=== PATIENT | female | born 1995 | race American Indian/Alaskan Native ===

== ENCOUNTER 2017-06-27 14:01 | Outpatient (CLI) | payer MEDICAID ==
--- NOTE | 2017-06-28 09:55 | Ultrasound Report ---
BIOPHYSICAL PROFILE: 2 - breathing movements 2 - movements 2 - posture and tone 2 - Qualitative amniotic fluid volume 8 - TOTAL SCORE OF POSSIBLE 8 Heart Rate (bpm) 166 Gestation: Single Position: Cephalic Amniotic Fluid: MILADYS = 13.7 cm Heart Rate: 131 BPM
[2017-07-01 13:44] VITALS: BP 106/70
== END 2017-06-27 18:45 | disposition home or self-care (01) ==
LOC: TRG 14:01
PROVIDERS: ATTEND Obstetrics & Gynecology
DX: Z34.93 Encounter for supervision of normal pregnancy, unspecified, third trimester (principal); Z3A.38 38 weeks gestation of pregnancy
CPT/HCPCS: 59025; 76815; 76819

== ENCOUNTER 2017-07-01 06:10 | Inpatient (IN) | payer MEDICAID ==
[2017-07-01] MEDS ORDERED: LACTATED RINGERS 1,000 ML ONE (07:00)
[2017-07-01] MEDS ORDERED: ePHEDrine SULFATE IV PRN ×2 (07:05→08:34)
[2017-07-01] MEDS ORDERED: XYLOCAINE 2% INFILTRATI ONE (07:05)
[2017-07-01] MEDS ORDERED: BRETHINE SUB-Q PRN (07:05)
[2017-07-01] MEDS ORDERED: NARCAN 0.4 MG/1 ML IV PRN (07:05)
[2017-07-01] MEDS ORDERED: STADOL IV PRN (07:05)
[2017-07-01] MEDS ORDERED: BRETHINE IVP PRN (07:05)
[2017-07-01] MEDS ORDERED: SUBLIMAZE IV PRN (07:05)
[2017-07-01] MEDS ORDERED: POLYCILLIN/NS 2 GM/100 ML 2 GM/100 ML BAG IV ONE (07:05)
[2017-07-01] MEDS ORDERED: ZOFRAN IV PRN ×2 (07:05→13:42)
[2017-07-01] MEDS ORDERED: MINERAL OIL PO PRN (07:05)
[2017-07-01] MEDS: LACTATED RINGERS 1,000 ML IV SCH ×2 (07:40→09:38)
[2017-07-01 07:45] LABS: Hemoglobin 12.7 gm/dl (10.1-14.3); Mean Corpuscular HGB Conc 33 % (30-34); Mean Corpuscular Hemoglobin 28 pg (28-32); Mean Corpuscular Volume 86 fl (79-97); Platelet Count 187 K/mm3 (140-440); Red Blood Count 4.52 M/mm3 (3.65-5.03); White Blood Count 16.3 K/mm3 (4.5-11.0)
[2017-07-01] MEDS ORDERED: PITOCin/NS 20 UNIT/1000ML DRIP 20 UNITS/1,000 ML BAG IV SCH (08:00)
[2017-07-01] MEDS ORDERED: PITOCin/NS 30 UNIT/500ML 30 UNITS/500 ML BAG IV SCH (08:00)
[2017-07-01] MEDS ORDERED: NARCAN 2 MG/2 ML IV PRN (08:34)
--- NOTE | 2017-07-01 08:34 | Anesthesia Consultation ---
Anesthesia Consult and Med Hx Date of service: 07/01/17 - Airway Anesthetic Teeth Evaluation: Good ROM Head & Neck: Adequate Mental/Hyoid Distance: Adequate - Pre-Operative Health Status ASA Pre-Surgery Classification: ASA2 Proposed Anesthetic Plan: Epidural, Spinal - Pulmonary Hx Asthma: No - Cardiovascular System Hx Hypertension: No - Central Nervous System Hx Seizures: No Hx Psychiatric Problems: No - Endocrine Hx Renal Disease: No Hx Hypothyroidism: No Hx Hyperthyroidism: No - Hematic Hx Anemia: No Hx Sickle Cell Disease: No - Other Systems Hx Alcohol Use: No
--- NOTE | 2017-07-01 08:36 | History and Physical Report ---
History of Present Illness Date of examination: 07/01/17 Date of admission: 07/01/17 07:15 History of present illness: 21 yo LMP EDC 07/06/17 at 39.2 weeks gestation presented to triage in latent labor. First trimester entry into care at 10 weeks gestation. 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 She also received iron BID for anemia. GBS negative. Past History Past Surgical History: no surgical history [facility] History: herpes Family/Genetic History: diabetes, heart disease, hypertension Social history: no significant social history, single - Obstetrical History Expected Date of Delivery: 07/06/17 Actual Gestation: 39 Week(s) 2 Day(s) : 1 Number of Living Children: 0 Medications and Allergies Allergies Allergy/AdvReac Type Severity Reaction Status Date / Time Sulfa (Sulfonamide Allergy Rash Verified 08/23/15 04:09 Antibiotics) Home Medications Medication Instructions Recorded Confirmed Last Taken Type Amoxicillin/K Clav Tab [Augmentin 1 tab PO Q12HR #14 tab 08/23/15 Unknown Rx 875 mg] Fluticasone [Flonase] 1 spray NS BID #1 bottle 08/23/15 Unknown Rx HYDROcodone/APAP 5-325 [[place] 1 each PO Q6HR PRN #12 tablet 08/23/15 Unknown Rx 5/325] Active Meds: Active Medications Butorphanol Tartrate (Stadol) 2 mg IV Q2H PRN PRN Reason: Pain , Severe (7-10) Fentanyl (Sublimaze) 100 mcg IV Q2H PRN PRN Reason: Labor Pain Ampicillin Sodium (Polycillin/Ns 1 Gm/50 Ml) 1 gm in 50 mls @ 100 mls/hr IV Q4HR VALERIE PRN Reason: Protocol Lactated Ringer's (Lactated Ringers) 1,000 mls @ 125 mls/hr IV DIRECT VALERIE Last Admin: 07/01/17 07:40 Dose: 125 mls/hr Oxytocin/Sodium Chloride (Pitocin/Ns 20 Unit/1000ml Drip) 20 units in 1,000 mls @ 125 mls/hr IV DIRECT VALERIE Oxytocin/Sodium Chloride (Pitocin/Ns 30 Unit/500ml) 30 units in 500 mls @ 4 mls /hr IV TITR VALERIE PRN Reason: Protocol Mineral Oil (Mineral Oil) 30 ml PO QHS PRN PRN Reason: Constipation Naloxone HCl (Narcan 0.4 Mg/1 Ml) 0.1 mg IV Q2MIN PRN PRN Reason: Res Rate </= 8 or 02 SAT < 92% Ondansetron HCl (Zofran) 4 mg IV Q8H PRN PRN Reason: Nausea And Vomiting - Vital Signs Vital signs: Vital Signs Temp Pulse Resp BP 98.1 F 101 H 18 129/83 07/01/17 06:48 07/01/17 06:48 07/01/17 06:48 07/01/17 06:48 Temp Pulse Resp BP Pulse Ox 98.1 F 106 H 18 129/83 97 07/01/17 06:48 07/01/17 07:48 07/01/17 06:48 07/01/17 06:48 07/01/17 07:48 - Physical Exam Breasts: Positive: deferred Lungs: Positive: Normal air movement Abdomen: Positive: normal appearance Genitourinary (Female): Positive: normal perenium. Negative: perineal/vulvar lesions Vagina: Positive: normal moisture Uterus: Positive: enlarged - Obstetrical FHR: category 1 Uterine Contraction Monitor Mode: External Cervical Dilatation: 4 Cervical Effacement Percentage: 90 station: -1 Uterine Contraction Frequency (min): 1 Uterine Contraction Duration: 40-60 Uterine Contraction Pattern: Regular Uterine Tone Measurement Phase: Contraction Uterine Contraction Intensity: Moderate Results Result Diagrams: 07/01/17 07:15 Abnormal lab results 07/01/17 Range/Units 07:15 WBC 16.3 H (4.5-11.0) K/mm3 RDW 16.0 H (13.2-15.2) % All other labs normal. Assessment and Plan A: IUP at term Active Labor Tachysytole P: AROM-clear Pitocin off now, Augment prn Analgesia/Anesthesia prn
[2017-07-01] MEDS ORDERED: fentaNYL-BUPIV 2 MCG/ML-0.125% 200 MCG/100 ML BAG EPIDURAL SCH (09:00)
[2017-07-01] MEDS ORDERED: BRETHINE ONE (10:39)
--- NOTE | 2017-07-01 11:03 | Event Note ---
Date: 07/01/17 Called by RN with report of decelerations post epidural placement. At time of call RN voiced FHT's back up to baseline and Category 1. Orders given to restart Pitocin. Patient UC tachysytole, decels. Pitocin off, [address] FHT's 130's moderate variability. Category 1 tracing. SVE: 8/100/-1
[2017-07-01] MEDS ORDERED: POLYCILLIN/NS 1 GM/50 ML 1 GM/50 ML BAG IV SCH (11:07)
--- NOTE | 2017-07-01 12:45 | Procedure Note ---
OB Delivery Note - Delivery Date of Delivery: 07/01/17 (8.0 oz female @) Surgeon: JHOANA GAMEZ Estimated blood loss: 200cc - Vaginal Delivery presentation: vertex Delivery position: OA Intrapartum events: none Delivery induction: none Delivery augmentation: pitocin Delivery monitor: external FHT, external uterine Route of delivery: Delivery placenta: spontaneous Delivery cord: 3 umbilical vessels Episiotomy: none Delivery laceration: 1st degree (right labial laceration, bleeding, repaired with 3.[address] under epidural C/S) Delivery repair: vicryl (3.0 Vicryl) Anesthesia: epidural - Infant A at 1 minute: 8 at 5 minutes: 9 Infant Gender: Female (Pushed to of female, bulb suctioned, stimulated to cry. Placed skin to skin. Spont. placenta, 3VC cord. FF 4 below U, ML, Pitocin infusing, minimal bleeding. Laceration as noted.)
[2017-07-01] MEDS ORDERED: TYLENOL PO PRN (13:42)
[2017-07-01] MEDS ORDERED: BENADRYL PO PRN (13:42)
[2017-07-01] MEDS ORDERED: LANSINOH TP PRN (13:42)
[2017-07-01] MEDS ORDERED: MILK OF MAGNESIA PO PRN (13:42)
[2017-07-01] MEDS ORDERED: SODIUM CHLORIDE FLUSH SYRINGE 10 ML IV SCH (13:42)
[2017-07-01] MEDS ORDERED: PHENERGAN PO PRN (13:42)
[2017-07-01] MEDS ORDERED: DULCOLAX PR PRN (13:42)
[2017-07-01] MEDS ORDERED: NORCO 5/325 PO PRN (13:42)
[2017-07-01] MEDS ORDERED: PHENERGAN PR PRN (13:42)
[2017-07-01] MEDS ORDERED: TUCKS PAD TP PRN (13:42)
[2017-07-01] MEDS: MOTRIN PO SCH ×2 (18:28→23:39)
[2017-07-02 02:09] LABS: Hematocrit 33.1 % (30.3-42.9)
[2017-07-02] MEDS: MOTRIN PO SCH ×4 (05:22→18:41)
[2017-07-02] MEDS ORDERED: BOOSTRIX IM ONE ×2 (06:00→12:47)
--- NOTE | 2017-07-02 08:39 | Progress Note ---
Assessment and Plan A/P PPD #1 s/p Doing well VSS ambulating well tolerating diet bleeding decreased continue routine PP orders Subjective - Subjective Date of service: 07/02/17 Principal diagnosis: s/p Patient reports: appetite normal, voiding normally, pain well controlled, flatus , ambulating normally [place]: doing well, bottle feeding Objective - Vital Signs Latest vital signs: Vital Signs Temp Pulse Resp BP Pulse Ox 07/02/17 05:22 18 07/02/17 00:00 98.4 F 96 H 20 101/71 07/01/17 23:39 18 07/01/17 20:10 98.8 F 88 20 111/65 07/01/17 19:45 16 07/01/17 18:28 20 07/01/17 15:05 98.8 F 101 H 20 110/69 07/01/17 12:56 102 H 109/65 07/01/17 12:41 101 H 125/57 07/01/17 12:35 79 L 07/01/17 12:27 81 L 07/01/17 12:19 109 H 99 07/01/17 12:16 70 87 07/01/17 12:14 130 H 95 07/01/17 12:10 119 H 90 07/01/17 12:09 101 H 96 07/01/17 12:04 117 H 100 07/01/17 11:59 86 100 07/01/17 11:54 92 H 100 07/01/17 11:50 92 H 61 L 07/01/17 11:49 104 H 100 07/01/17 11:44 98 H 100 07/01/17 11:39 101 H 83 L 07/01/17 11:36 93 H 93 07/01/17 11:34 98 H 81 L 07/01/17 11:29 103 H 99 07/01/17 11:24 102 H 97 07/01/17 11:22 104 H 94 07/01/17 11:19 89 98 07/01/17 11:14 81 99 07/01/17 11:09 83 99 07/01/17 11:04 88 100 07/01/17 10:59 85 100 07/01/17 10:54 102 H 100 07/01/17 10:50 78 87 07/01/17 10:49 97 H 97 07/01/17 10:44 98 H 91 08/15/17 10:43 109 H 90 07/01/17 10:39 106 H 100 07/01/17 10:35 90 92 07/01/17 10:34 90 94 07/01/17 10:29 87 97 07/01/17 10:27 102 H 79 L 07/01/17 10:24 90 100 07/01/17 10:19 92 H 100 07/01/17 10:14 89 100 07/01/17 10:09 93 H 100 07/01/17 10:04 88 99 07/01/17 09:59 95 H 99 07/01/17 09:56 82 106/65 07/01/17 09:54 83 100 07/01/17 09:51 81 108/68 07/01/17 09:49 89 109/68 96 07/01/17 09:48 87 94 07/01/17 09:46 83 109/64 07/01/17 09:44 83 95 07/01/17 09:42 88 93 07/01/17 09:39 86 93 07/01/17 09:34 91 H 94 07/01/17 09:33 88 94 07/01/17 09:29 94 H 95 07/01/17 09:26 99 H 94 07/01/17 09:24 95 H 94 07/01/17 09:19 98 H 93 07/01/17 09:14 97 H 116/65 94 07/01/17 08:52 84 07/01/17 08:50 95 H 92 07/01/17 08:45 97.2 F L 94 H 18 118/70 93 07/01/17 08:44 93 H 118/70 Intake and Output 07/01/17 07/02/17 07/02/17 22:59 06:59 14:59 Intake Total 360 360 Output Total 400 1200 Balance -40 -840 Intake: Oral 360 360 Output: Urine 400 1200 Void 400 1200 Other: Total, Intake Amount 360 120 Total, Output Amount 400 600 # Bowel Movements 1 - Exam Breasts: Present: normal Cardiovascular: Present: Regular rate, Normal S1 Lungs: Present: Clear to auscultation, Normal air movement Abdomen: Present: normal appearance, soft, normal bowel sounds. Absent: distention, tenderness, guarding Uterus: Present: normal, firm, fundal height below umbilicus. Absent: bogginess , tenderness Extremities: Present: normal Deep Tendon Reflex Grade: Normal +2
--- NOTE | 2017-07-02 08:52 | Discharge Summary ---
Providers - Providers Date of Admission: 07/01/17 07:15 Date of discharge: 07/02/17 Attending physician: FRANNIE VILLATORO Primary care physician: FRANNIE VILLATORO Hospitalization Reason for admission: active labor Delivery: Episiotomy: none Laceration: vaginal side wall Incision: normal, dry, intact complications: none Discharge diagnosis: IUP at term delivered [place] baby: female Hospital course: Patient delivered . Doing well. VSS. bootle feeding. undecided control. H/H normal. Discharge home PPD#2 in stable condition to f/u in 4 weeks for check Condition at discharge: Good Disposition: DC-01 TO HOME OR SELFCARE Plan - Discharge Medications Prescriptions: Ibuprofen [Motrin] 600 mg PO Q8H PRN #30 tablet PRN Reason: Pain oxyCODONE /ACETAMINOPHEN [Percocet 5/325] 1 tab PO Q6HR PRN #30 tablet PRN Reason: Pain - Provider Discharge Summary Activity: routine, no sex for 6 weeks, no heavy lifting 4 weeks, no strenuous exercise Diet: routine Instructions: routine Additional instructions: [] Smoking cessation referral if applicable(refer to patient education folder for contact #) [] Refer to [facility] Booklet Call your doctor immediately for: * Fever > 100.5 * Heavy vaginal bleeding ( >1 pad per hour) * Severe persistent headache * Shortness of breath * Reddened, hot, painful area to leg or breast * Drainage or odor from incision. * Keep incision clean and dry at all times and follow doctor's instructions regarding bathing/showering - Follow up plan Follow up: FRANNIE VILLATORO MD [Primary Care Provider] - 07/31/17
--- NOTE | 2017-07-02 10:24 | Progress Note ---
Subjective Date of service: 07/02/17 Principal diagnosis: s/p Interval history: 1st day after normal vaginal delivery Patient is in the bed, comfortable. Pain is mostly controlled with pain meds. Ambulated well. No residual neurological deficit. No anesthesia complications Objective - Constitutional Vitals: Vital Signs - 12hr 07/01/17 07/02/17 07/02/17 23:39 00:00 05:22 Temperature 98.4 F Pulse Rate 96 H Respiratory 18 20 18 Rate Blood Pressure 101/71 07/02/17 09:00 Temperature 98.4 F Pulse Rate 100 H Respiratory 18 Rate Blood Pressure 106/72 - Labs CBC & Chem 7: 07/02/17 01:09
[2017-07-02] MEDS: PRENATAL VITAMIN PO SCH (12:25)
[2017-07-02] MEDS ORDERED: M-M-R II VACCINE SUB-Q ONE (12:47)
[2017-07-03] MEDS: MOTRIN PO SCH ×2 (00:26→05:07)
[2017-07-03] MEDS ORDERED: AMMONIA INHALANT IH ONE (05:58)
[2017-07-03] MEDS: PRENATAL VITAMIN PO SCH (10:00)
[2017-07-03 10:43] VITALS: BP 116/71
== END 2017-07-03 11:20 | disposition home or self-care (01) | DRG 775 ==
LOC: TRG 06:10 → LD 07:15 → OB 15:21
PROVIDERS: ADMIT Obstetrics & Gynecology; ATTEND Obstetrics & Gynecology
PROC: 10E0XZZ Delivery of Products of Conception, External Approach (ICD-10-PCS; principal; 2017-07-01)
PROC: 0HQ9XZZ Repair Perineum Skin, External Approach (ICD-10-PCS; 2017-07-01)
PROC: 3E0R3BZ Introduction of Anesthetic Agent into Spinal Canal, Percutaneous Approach (ICD-10-PCS; 2017-07-01)
PROC: 00HU33Z Insertion of Infusion Device into Spinal Canal, Percutaneous Approach (ICD-10-PCS; 2017-07-01)
PROC: 3E0134Z Introduction of Serum, Toxoid and Vaccine into Subcutaneous Tissue, Percutaneous Approach (ICD-10-PCS; 2017-07-02)
DX: O70.0 First degree perineal laceration during delivery (principal); Z3A.39 39 weeks gestation of pregnancy; Z37.0 Single live birth; Z23 Encounter for immunization
CPT/HCPCS: 36415; 85014; 85018; 85027; 86592; 86850; 86900; 86901; 90471; 90715; 99211; G0463; J0595; J2590; J3105; J7120